=== PATIENT | female | born 1980 | race Caucasian/White ===

== ENCOUNTER → 2020-06-30 | Outpatient (REF) | payer BC ==
[2020-06-30 14:58] LABS: BASO # 0.1 10^3/uL (0.0-0.2); EOS # 0.4 10^3/uL (0.0-0.5); EOS % 3.3 % (0.0-3.0); HEMATOCRIT 42.4 % (36.0-47.0); HEMOGLOBIN 13.6 g/dl (12.0-15.5); LYMPH # 2.4 10^3/uL (1.5-5.0); LYMPH % 20.5 % (24.0-44.0); MEAN CORPUSCULAR HEMOGLOBIN 29.4 pg (27.0-33.0); MEAN CORPUSCULAR HGB CONC 32.1 g/dl (32.0-36.5); MEAN CORPUSCULAR VOLUME 91.6 fl (80.0-96.0); MONO # 0.7 10^3/uL (0.0-0.8); NEUTROPHILS # 7.9 10^3/uL (1.5-8.5); NEUTROPHILS % 68.8 % (36.0-66.0); PLATELET COUNT, AUTOMATED 485 10^3/uL (150-450); RED BLOOD COUNT 4.63 10^6/uL (4.00-5.40); WHITE BLOOD COUNT 11.5 10^3/uL (4.0-10.0)
[2020-06-30 15:32] LABS: ALBUMIN 3.2 GM/DL (3.2-5.2); ALT/SGPT 13 U/L (12-78); BILIRUBIN,TOTAL 0.4 MG/DL (0.2-1.0); BLOOD UREA NITROGEN 11 MG/DL (7-18); CALCIUM LEVEL 9.6 MG/DL (8.5-10.1); CARBON DIOXIDE LEVEL 30 MEQ/L (21-32); CHLORIDE LEVEL 104 MEQ/L (98-107); CHOLESTEROL LEVEL 135 MG/DL (<200); CHOLESTEROL RISK RATIO 3.214 (<5); CREATININE FOR GFR 0.59 MG/DL (0.55-1.30); GLOMERULAR FILTRATION RATE > 60.0 (>58); GLUCOSE, FASTING 87 MG/DL (70-100); HDL CHOLESTEROL 42 MG/DL (>40); LDL CHOLESTEROL 68 MG/DL (<100); NON-HDL-C 93 MG/DL; POTASSIUM SERUM 4.6 MEQ/L (3.5-5.1); SODIUM LEVEL 137 MEQ/L (136-145); TOTAL PROTEIN 6.6 GM/DL (6.4-8.2); TRIGLYCERIDES LEVEL 125 MG/DL (<150)
== END ==
LOC: M SFHCPLAZ 09:54
PROVIDERS: ATTEND Physician Assistant Medical
DX: K21.9 Gastro-esophageal reflux disease without esophagitis (principal); Z13.220 Encounter for screening for lipoid disorders

== ENCOUNTER → 2020-07-28 | Outpatient (REF) | payer BC ==
[2020-07-28 13:55] LABS: BASO # 0.1 10^3/uL (0.0-0.2); EOS # 0.3 10^3/uL (0.0-0.5); EOS % 3.1 % (0.0-3.0); HEMATOCRIT 41.1 % (36.0-47.0); HEMOGLOBIN 13.3 g/dl (12.0-15.5); LYMPH # 2.4 10^3/uL (1.5-5.0); LYMPH % 22.3 % (24.0-44.0); MEAN CORPUSCULAR HEMOGLOBIN 29.6 pg (27.0-33.0); MEAN CORPUSCULAR HGB CONC 32.4 g/dl (32.0-36.5); MEAN CORPUSCULAR VOLUME 91.3 fl (80.0-96.0); MONO # 0.7 10^3/uL (0.0-0.8); MONO % 6.2 % (0.0-5.0); NEUTROPHILS # 7.2 10^3/uL (1.5-8.5); NEUTROPHILS % 67.2 % (36.0-66.0); PLATELET COUNT, AUTOMATED 458 10^3/uL (150-450); WHITE BLOOD COUNT 10.8 10^3/uL (4.0-10.0)
[2020-07-28 15:14] LABS: ALBUMIN 3.3 GM/DL (3.2-5.2); ALT/SGPT 11 U/L (12-78); BILIRUBIN,TOTAL 0.6 MG/DL (0.2-1.0); BLOOD UREA NITROGEN 12 MG/DL (7-18); CALCIUM LEVEL 9.3 MG/DL (8.5-10.1); CARBON DIOXIDE LEVEL 28 MEQ/L (21-32); CHLORIDE LEVEL 103 MEQ/L (98-107); CREATININE FOR GFR 0.63 MG/DL (0.55-1.30); GLOMERULAR FILTRATION RATE > 60.0 (>58); GLUCOSE, FASTING 86 MG/DL (70-100); LIPASE 66 U/L (73-393); POTASSIUM SERUM 4.9 MEQ/L (3.5-5.1); SODIUM LEVEL 136 MEQ/L (136-145); TOTAL PROTEIN 6.7 GM/DL (6.4-8.2)
== END ==
LOC: M SFHCPLAZ 11:13
PROVIDERS: ATTEND Physician Assistant Medical
DX: R14.0 Abdominal distension (gaseous) (principal); K21.9 Gastro-esophageal reflux disease without esophagitis

== ENCOUNTER 2020-08-18 15:46 | Emergency (ER) | payer BC ==
[~2020-08-18] VITALS: Ht 160 cm; Wt 57.3 kg
--- OUTSIDE RECORDS SUMMARY | 2020-08-18 15:52 | CCD ---
Author Author [facility] Organization [facility] Address Unknown Phone Unavailable Care Team Providers Care Boat Hoist Operator Name Role Phone CorneliaMelanie vyasan Unavailable PROBLEMS Type Condition ICD9-CM Code HMF01-AT Code Onset Dates Condition S tatus SNOMED Code Notes Problem Cervical cancer screening Z12.4 Active 829264 001 Problem Tobacco use Z72.0 Active 112533759 Problem Gastroesophageal reflux dise ase, unspecified whether esophagitis present K21.9 Active 565021480 Problem Encounter for screening for malignant neoplasm of breast, unspecified screening modality Z12.39 Active 750878273 Problem Lipid screening Z13.220 Active 333288580 Problem Colon cancer screening Z12.11 Active 773315802 ALLERGIES Allergen (clinical drug ingredient) Drug/Non Drug Allergy do cumented on EMR Reaction Allergy Type Onset Date Status codeine Codeine Sulfate([facility] Code:[address]-27) Nausea/Vomiting Dr ug Allergy Active ENCOUNTERS from 1979 to 2020-08-08 Encounter Location Date Provider Diagnosis [address] [address] Jul, Oly Bautista Bloating R14.0 ; Gastroesophageal reflux disease, unspecified whether esophagitis present K21.9 ; Lipid screening Z13.220 ; Tobacco use Z72.0 and Colon cancer screening Z12.11 IMMUNIZATIONS No Information SOCIAL HISTORY Tobacco Use: Social History Observation Description Date Details (start date - stop date) Current Smoker Sex Assigned At : Social History Observation Description Sex Assigned At Unknown Education: Question Answer Notes Level of Education: Finished College Audit Question Answer Notes Total Score: 7 Interpretation: Alcohol Education Language: Question Answer Notes Languages spoken: Polish Drug and Alcohol Question Answer Notes Total Score: 0 Interpretation: No problems reported Tobacco Use: Question Answer Notes Are you a: current smoker Patient counseled on the dangers of tobacco use and urged to quit: 06/30/2020 How many cigarettes a day do you smoke? 11- Are you interested in quitting? Not ready to quit REASON FOR REFERRAL No Information VITAL SIGNS Weight 128 lbs Jul, Height 63 in Jul, BMI 22.67 kg/m2 Jul, Heart Rate 121 /min Jul, Respiratory Rate 18 /min Jul, Temperature 98.1 degrees Fahrenheit Jul, Oximetry 100 Jul, Blood pressure systolic 120 mm Hg Jul, Blood pressure diastolic 68 mm Hg Jul, MEDICATIONS Medication SIG (Take, Route, Frequency, Duration) Notes Start Da te End Date Status MiraLax 17 GM 1 packet mixed with 8 ounces of fluid Orally Once a day for 30 day(s) Jul, Active Phazyme 180 MG 1 capsule after meals and at bedtime as needed Orally Daily for 30 Days Jul, Active Omeprazole 20 MG 1 capsule 30 minutes before morning meal Orally bid before meals for 30 day(s) Active PROCEDURES No Information RESULTS Component Value Reference Range CBC with Differential Reviewed date:07/28/2020 16:52:17 Interpretation: Performing Lab:[facility], [facility] [address] [address] , ,[place] [address] WHITE BLOOD COUNT 10.8 4.0-10.0 RED BLOOD COUNT 4.50 4.00-5.40 HEMOGLOBIN 13.3 12.0-15.5 HEMATOCRIT 41.1 36.0-47.0 MEAN CORPUSCULAR VOLUME 91.3 80.0-96.0 MEAN CORPUSCULAR HEMOGLOBIN 29.6 27.0-33.0 MEAN CORPUSCULAR HGB CONC 32.4 32.0-36.5 RED CELL DISTRIBUTION WIDTH 13.6 11.5-14.5 PLATELET COUNT, AUTOMATED 458 150-450 NEUTROPHILS % 67.2 36.0-66.0 LYMPH % 22.3 24.0-44.0 MONO % 6.2 0.0-5.0 EOS % 3.1 0.0-3.0 BASO % 1.0 0.0-1.0 NEUTROPHILS # 7.2 1.5-8.5 LYMPH # 2.4 1.5-5.0 MONO # 0.7 0.0-0.8 EOS # 0.3 0.0-0.5 BASO # 0.1 0.0-0.2 Comprehensive Metabolic Profile (CMP) Reviewed date:07/28/2020 16:51:54 Interpretation: Performing Lab:[facility] [address] [address] [address] , ,[place] [address] GLUCOSE, FASTING 86 70-100 BLOOD UREA NITROGEN 12 7-18 CREATININE FOR GFR 0.63 0.55-1.30 GLOMERULAR FILTRATION RATE > 60.0 >58 SODIUM LEVEL 136 136-145 POTASSIUM SERUM 4.9 3.5-5.1 CHLORIDE LEVEL 103 98-107 CARBON DIOXIDE LEVEL 28 21-32 CALCIUM LEVEL 9.3 8.5-10.1 AST/SGOT 7 7-37 ALT/SGPT 11 12-78 ALKALINE PHOSPHATASE 79 45-117 BILIRUBIN,TOTAL 0.6 0.2-1.0 TOTAL PROTEIN 6.7 6.4-8.2 ALBUMIN 3.3 3.2-5.2 ALBUMIN/GLOBULIN RATIO 1.0 1.2-2.2 LIPASE Reviewed date:07/28/2020 16:52:28 Interpretation: Performing Lab:[facility] [id number] , ,[facility] LIPASE 66 73-393 REASON FOR VISIT 4 Weeks c SS MEDICAL (GENERAL) HISTORY Type Description Date Surgical History rectal fissure repair-[facility] 201 0 Surgical History tonsillectomy Hospitalization History as above Goals Section No Information Health Concerns No Information MEDICAL EQUIPMENT No Information MENTAL STATUS No Information FUNCTIONAL STATUS No Information ASSESSMENTS Encounter Date Diagnosis Assessment Notes Treatment Notes Treatm ent Clinical Notes Jul, Bloating (ICD-10 - R14.0) Trial of above 07/2020 lipase 66 Jul, Gastroesophageal reflux dise ase, unspecified whether esophagitis present (ICD-10 - K21.9) Controlled 07/2020 10.8, 13.3&41.1, 458k 06/2020 wbc 11.5, H&H 13.6&42.4, plat.s 485k 11 Jul, 2020 Lipid screening (ICD-10 - Z13.220) 06/2020 LDL 68/HDL 42/TG 125 07/2020 136,4.9, 12/0.63, 86, calc. 9.3, 11,79 06/2020 Na 137, k4.6, bun/cr 11/0.59,gluc 87, calc. 9.6, ast 13,alt 11 Jul, 2020 Tobacco use (ICD-10 - Z72.0) Started smoking at 15, has used 1ppd x25Y, offered aids to quit declines for now Jul, Colon cancer screening (ICD-10 - Z12.11) No family colon ca or polyps , will monitor bloating H/o rectal fissure, h/o surg. resection, no appetite or wt. loss PLAN OF TREATMENT Medication Medication Name Sig Start Date Stop Date MiraLax 17 GM 1 packet mixed with 8 ounces of fluid Orally Once a day for 30 day(s) Jul, Omeprazole 20 MG 1 capsule 30 minutes before morning meal Orally bid before meals for 30 day(s) Phazyme 180 MG 1 capsule after meals and at bedtime as needed Orally Daily for 30 Days Jul, Treatment Notes Assessment Notes Clinical Notes Bloating Trial of above07/2020 lipase 66 Gastroesophageal reflux disease, unspecified whether esophag itis present Controlled07/2020 10.8, 13.3&41.1, 458k108/2019 wbc 11.5, H&H 13.6&42.4, plat.s 485k Lipid screening 06/2020 LDL 68/HDL 4 2/TG 12507/2020 136,4.9, 12/0.63, 86, calc. 9.3, 11,7906/2020 Na 137, k4.6, bun/cr 11/0.59,gluc 87, calc. 9.6, ast 13,alt Tobacco use Started smoking at [age], has used 1ppd x25Y, offered aids to quit declines for now Colon cancer screening No family colon c a or polyps , will monitor bloatingH/o rectal fissure, h/o surg. resection, no appetite or wt. loss Next Appt Details 2-3 Months c SS Reason: Provider Name:Oly Bautista, 09-22 10:30:00 AM, [address] [place], [address], Insurance Providers Payer Name Payer Address Payer Phone Insured Name Patient Relati onship to Insured Coverage Start Date Coverage End Date [facility] [address] [facility] [address] [address] [facility] [address] [id number]
--- OUTSIDE RECORDS SUMMARY | 2020-08-18 15:52 | CCD ---
Author Author [facility] Organization [facility] Address Unknown Phone Unavailable Care Team Providers Care Caramel Coloring Operator Name Role Phone Michele Oly Unavailable PROBLEMS Type Condition ICD9-CM Code YDW06-FM Code Onset Dates Condition S tatus SNOMED Code Notes Problem Cervical cancer screening Z12.4 Active 311883 001 Problem Tobacco use Z72.0 Active 100267556 Problem Gastroesophageal reflux dise ase, unspecified whether esophagitis present K21.9 Active 571514783 Problem Encounter for screening for malignant neoplasm of breast, unspecified screening modality Z12.39 Active 007174088 Problem Lipid screening Z13.220 Active 757489619 Problem Colon cancer screening Z12.11 Active 565566733 ALLERGIES Allergen (clinical drug ingredient) Drug/Non Drug Allergy do cumented on EMR Reaction Allergy Type Onset Date Status codeine Codeine Sulfate([facility] Code:[address]-17) Nausea/Vomiting Dr ug Allergy Active ENCOUNTERS from 1979 to 2020-07-04 Encounter Location Date Provider Diagnosis [address] [address] 14 Jun, 2020 Oly Bautista Physical exam Z00.00 ; Colon cancer scre ening Z12.11 ; Lipid screening Z13.220 ; Encounter for screening for malignant neoplasm of breast, unspecified screening modality Z12.39 ; Cervical cancer screening Z12.4 ; Gastroesophageal reflux disease, unspecified whether esophagitis present K21.9 and Tobacco use Z72.0 IMMUNIZATIONS No Information SOCIAL HISTORY Tobacco Use: Social History Observation Description Date Details (start date - stop date) Current Smoker Sex Assigned At : Social History Observation Description Sex Assigned At Unknown Audit Question Answer Notes Total Score: 7 Interpretation: Alcohol Education Drug and Alcohol Question Answer Notes Total Score: 0 Interpretation: No problems reported Tobacco Use: Question Answer Notes Are you a: current smoker Patient counseled on the dangers of tobacco use and urged to quit: 06/30/2020 How many cigarettes a day do you smoke? 11-20 Are you interested in quitting? Not ready to quit REASON FOR REFERRAL No Information VITAL SIGNS Weight 127.0 lbs Jun, Height 63 in Jun, BMI 22.49 kg/m2 Jun, Heart Rate 126 /min Jun, Respiratory Rate 18 /min Jun, Temperature 98.0 degrees Fahrenheit Jun, Oximetry 98% Jun, Blood pressure systolic 110 mm Hg Jun, Blood pressure diastolic 70 mm Hg Jun, MEDICATIONS Medication SIG (Take, Route, Frequency, Duration) Notes Start Da te End Date Status Omeprazole 20 MG 1 capsule 30 minutes before morning meal Orally bid before meals for 30 day(s) Jun, Active PROCEDURES No Information RESULTS Component Value Reference Range CBC with Differential Reviewed date:06/30/2020 16:44:34 Interpretation: Performing Lab:[facility], [facility] [address] [address] , ,[place] [address] WHITE BLOOD COUNT 11.5 4.0-10.0 RED BLOOD COUNT 4.63 4.00-5.40 HEMOGLOBIN 13.6 12.0-15.5 HEMATOCRIT 42.4 36.0-47.0 MEAN CORPUSCULAR VOLUME 91.6 80.0-96.0 MEAN CORPUSCULAR HEMOGLOBIN 29.4 27.0-33.0 MEAN CORPUSCULAR HGB CONC 32.1 32.0-36.5 RED CELL DISTRIBUTION WIDTH 13.0 11.5-14.5 PLATELET COUNT, AUTOMATED 485 150-450 NEUTROPHILS % 68.8 36.0-66.0 LYMPH % 20.5 24.0-44.0 MONO % 6.0 0.0-5.0 EOS % 3.3 0.0-3.0 BASO % 1.0 0.0-1.0 NEUTROPHILS # 7.9 1.5-8.5 LYMPH # 2.4 1.5-5.0 MONO # 0.7 0.0-0.8 EOS # 0.4 0.0-0.5 BASO # 0.1 0.0-0.2 Comprehensive Metabolic Profile (CMP) Reviewed date:06/30/2020 16:43:11 Interpretation: Performing Lab:[facility] [address] [facility] [address] , ,[place] [address] GLUCOSE, FASTING 87 70-100 BLOOD UREA NITROGEN 11 7-18 CREATININE FOR GFR 0.59 0.55-1.30 GLOMERULAR FILTRATION RATE > 60.0 >58 SODIUM LEVEL 137 136-145 POTASSIUM SERUM 4.6 3.5-5.1 CHLORIDE LEVEL 104 98-107 CARBON DIOXIDE LEVEL 30 21-32 CALCIUM LEVEL 9.6 8.5-10.1 AST/SGOT 4 7-37 ALT/SGPT 13 12-78 ALKALINE PHOSPHATASE 89 45-117 BILIRUBIN,TOTAL 0.4 0.2-1.0 TOTAL PROTEIN 6.6 6.4-8.2 ALBUMIN 3.2 3.2-5.2 ALBUMIN/GLOBULIN RATIO 0.9 1.2-2.2 LIPID PANEL (CARDIAC RISK) Reviewed date:06/30/2020 16:42:52 Interpretation: Performing Lab:[facility] [address] [facility] [id number] , ,[place] [address] TRIGLYCERIDES LEVEL 125 <150 CHOLESTEROL LEVEL 135 <200 HDL CHOLESTEROL 42 >40 LDL CHOLESTEROL 68 <100 NON-HDL-C 93 CHOLESTEROL RISK RATIO 3.214 <5 REASON FOR VISIT GUITAR TECHNICIAN-To Establish Care MEDICAL (GENERAL) HISTORY Type Description Date Surgical History rectal fissure repair-[facility] 201 0 Surgical History tonsillectomy Hospitalization History as above Goals Section No Information Health Concerns No Information MEDICAL EQUIPMENT No Information MENTAL STATUS No Information FUNCTIONAL STATUS No Information ASSESSMENTS Encounter Date Diagnosis Assessment Notes Treatment Notes Treatm ent Clinical Notes Jun, Physical exam (ICD-10 - Z00.00) Jun, Colon cancer screening (ICD-10 - Z12.11) No family colon ca or polyps H/o rectal fissure, h/o surg. resection, no appetite or wt. loss Jun, Lipid screening (ICD-10 - Z13.220) Jun, Encounter for screening for malignant neoplasm of breast, unspecified screening modality (ICD-10 - Z12.39) Jun, Cervical cancer screening (ICD-10 - Z12.4) Given no. to schedule Jun, Gastroesophageal reflux dise ase, unspecified whether esophagitis present (ICD-10 - K21.9) Jun, Tobacco use (ICD-10 - Z72.0) Started smoking at 15, has used 1ppd x25Y, offered aids to quit declines for now PLAN OF TREATMENT Medication Medication Name Sig Start Date Stop Date Omeprazole 20 MG 1 capsule 30 minutes before morning meal Orally bid before meals for 30 day(s) Jun, Treatment Notes Assessment Notes Clinical Notes Colon cancer screening No family colon c a or polypsH/o rectal fissure, h/o surg. resection, no appetite or wt. loss Cervical cancer screening Given no. to s chedule Tobacco use Started smoking at [age], has used 1ppd x25Y, offered aids to quit declines for now Treatment Notes Test Name Order Date Digital Mammo Diagnostic Bilat (Ultrasound if indicate d) 2020-07-04 Next Appt Details 4 Weeks c SS Reason: Provider Name:Oly Bautista, -11 10:30:00 AM, [address] [place], [address], Insurance Providers Payer Name Payer Address Payer Phone Insured Name Patient Relati onship to Insured Coverage Start Date Coverage End Date [facility] [id number] [facility] [address] [address] [facility] [address] [id number]
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
[2020-08-18] MEDS ORDERED: OMEP-218 (16:00)
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
[2020-08-18 19:13] LABS: BASO # 0.1 10^3/uL (0.0-0.2); BASO % 0.8 % (0.0-1.0); EOS # 0.8 10^3/uL (0.0-0.5); EOS % 6.1 % (0.0-3.0); HEMATOCRIT 39.8 % (36.0-47.0); HEMOGLOBIN 12.9 g/dl (12.0-15.5); LYMPH % 22.1 % (24.0-44.0); MEAN CORPUSCULAR HEMOGLOBIN 28.7 pg (27.0-33.0); MEAN CORPUSCULAR HGB CONC 32.4 g/dl (32.0-36.5); MEAN CORPUSCULAR VOLUME 88.4 fl (80.0-96.0); MONO # 0.8 10^3/uL (0.0-0.8); MONO % 5.6 % (0.0-5.0); NEUTROPHILS # 8.9 10^3/uL (1.5-8.5); PLATELET COUNT, AUTOMATED 407 10^3/uL (150-450); WHITE BLOOD COUNT 13.7 10^3/uL (4.0-10.0)
[2020-08-18 19:39] LABS: ALBUMIN 3.4 GM/DL (3.2-5.2); ALT/SGPT 15 U/L (12-78); BILIRUBIN,DIRECT 0.2 MG/DL (0.0-0.2); BILIRUBIN,TOTAL 0.5 MG/DL (0.2-1.0); BLOOD UREA NITROGEN 9 MG/DL (7-18); CALCIUM LEVEL 9.3 MG/DL (8.5-10.1); CARBON DIOXIDE LEVEL 28 MEQ/L (21-32); CHLORIDE LEVEL 102 MEQ/L (98-107); CREATININE FOR GFR 0.63 MG/DL (0.55-1.30); GLOMERULAR FILTRATION RATE > 60.0 (>58); GLUCOSE, FASTING 85 MG/DL (70-100); LIPASE 42 U/L (73-393); POTASSIUM SERUM 4.3 MEQ/L (3.5-5.1); SODIUM LEVEL 140 MEQ/L (136-145); TOTAL PROTEIN 6.5 GM/DL (6.4-8.2)
[2020-08-18 19:40] LABS: HCG, SERUM QUALITATIVE NEGATIVE (NEGATIVE)
[2020-08-18] MEDS ORDERED: NS 1,000 ML IV ONE (20:15)
[2020-08-18] MEDS ORDERED: ISOVUE-370 76% 100ML VIAL As Ordered ONE (20:38)
--- NOTE | 2020-08-18 21:21 | REPVR ---
PROCEDURE INFORMATION: Exam: CT Abdomen And Pelvis With Contrast Exam date and time: 08/18/2020 8:36 PM Age: 40 years old Clinical indication: Bloating; Additional info: Abd bloating x 2 mo, rlq abd pain TECHNIQUE: Imaging protocol: Computed tomography of the abdomen and pelvis with contrast. Axial, coronal and sagittal reformatted images were created and reviewed. Radiation optimization: All CT scans at this facility use at least one of these dose optimization techniques: automated exposure control; mA and/or kV adjustment per patient size (includes targeted exams where dose is matched to clinical indication); or iterative reconstruction. Contrast material: ISOVUE 370; Contrast volume: 100 ml; Contrast route: INTRAVENOUS (IV); COMPARISON: No relevant prior studies available. FINDINGS: Liver: Unremarkable. Gallbladder and bile ducts: No radiodense gallstones. No biliary ductal dilatation. Pancreas: Unremarkable. Spleen: Mild scalloping of the splenic capsule. Adrenal glands: Normal. No mass. Kidneys and ureters: No mass. No radiodense calculi. No hydronephrosis. Stomach and bowel: No bowel wall thickening. No obstruction. No pneumatosis. Appendix: Normal. Intraperitoneal space: Large volume ascites. No organized collection. No free air. Vasculature: Mild atherosclerotic disease. No aneurysm or dissection. Lymph nodes: No pathologically enlarged lymph nodes. Urinary bladder: Unremarkable as visualized. Reproductive: Ill-defined, complex left adnexal mass (at least 8.6 x 5.3 cm) with associated lobular soft tissue (at least 13.1 x 10 x 10.7 cm) extending into the right adnexum and right lower quadrant mesentery/omentum. Bones/joints: No acute osseous abnormality. Soft tissues: Unremarkable. IMPRESSION: 1. 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 2. Additional findings, as above. THIS REPORT CONTAINS FINDINGS THAT MAY BE CRITICAL TO PATIENT CARE. The findings were verbally communicated via telephone conference with VERONIKA TIRADO at 9:20 PM EST on 08/18/2020. The findings were acknowledged and understood. Electronically signed by: Davi Calhoun On 08/18/2020 21:21:29 PM
[2020-08-18 22:01] VITALS: BP 132/83
--- NOTE | 2020-08-19 13:21 | ED PDOC ---
Post-Departure Follow-Up dr astorga and sandy ulloa faxed formal report of ct abd/p fo rfu Brian Swann MD Aug 19, 2020 13:21
[2020-08-19 14:27] LABS: CA 125 1359.8 U/ML (<30.2)
== END 2020-08-18 22:08 | disposition home or self-care (01) ==
LOC: M ED 15:46
DX: C56.2 Malignant neoplasm of left ovary (principal); R18.8 Other ascites; F17.210 Nicotine dependence, cigarettes, uncomplicated
CPT/HCPCS: 74177; 80048; 80076; 81001; 83690; 84703; 85025; 86304; 96360; 99284; Q9967

== ENCOUNTER → 2020-08-18 | Outpatient (REF) | payer BC ==
[~2020-08-18] MED LIST: OMEP-218
[2020-08-18 16:46] LABS: BASO # 0.1 10^3/uL (0.0-0.2); BASO % 0.8 % (0.0-1.0); EOS # 0.6 10^3/uL (0.0-0.5); EOS % 4.7 % (0.0-3.0); HEMATOCRIT 39.2 % (36.0-47.0); HEMOGLOBIN 12.6 g/dl (12.0-15.5); LYMPH # 2.7 10^3/uL (1.5-5.0); LYMPH % 19.5 % (24.0-44.0); MEAN CORPUSCULAR HEMOGLOBIN 28.6 pg (27.0-33.0); MEAN CORPUSCULAR HGB CONC 32.1 g/dl (32.0-36.5); MEAN CORPUSCULAR VOLUME 88.9 fl (80.0-96.0); MONO # 0.7 10^3/uL (0.0-0.8); MONO % 5.4 % (0.0-5.0); NEUTROPHILS # 9.5 10^3/uL (1.5-8.5); NEUTROPHILS % 69.2 % (36.0-66.0); PLATELET COUNT, AUTOMATED 419 10^3/uL (150-450); RED BLOOD COUNT 4.41 10^6/uL (4.00-5.40); WHITE BLOOD COUNT 13.7 10^3/uL (4.0-10.0)
[2020-08-18 16:53] LABS: ALBUMIN 3.3 GM/DL (3.2-5.2); ALT/SGPT 14 U/L (12-78); BILIRUBIN,TOTAL 0.4 MG/DL (0.2-1.0); BLOOD UREA NITROGEN 9 MG/DL (7-18); CARBON DIOXIDE LEVEL 29 MEQ/L (21-32); CHLORIDE LEVEL 100 MEQ/L (98-107); CREATININE FOR GFR 0.59 MG/DL (0.55-1.30); GLOMERULAR FILTRATION RATE > 60.0 (>58); GLUCOSE, FASTING 78 MG/DL (70-100); POTASSIUM SERUM 4.4 MEQ/L (3.5-5.1); SODIUM LEVEL 136 MEQ/L (136-145); TOTAL PROTEIN 6.5 GM/DL (6.4-8.2)
== END ==
LOC: M SFHCPLAZ 14:13
PROVIDERS: ATTEND Physician Assistant Medical
DX: K21.9 Gastro-esophageal reflux disease without esophagitis (principal); R14.0 Abdominal distension (gaseous)

== ENCOUNTER → 2020-08-20 | Outpatient (CLI) | payer BC ==
--- NOTE | 2020-08-20 13:51 | REP ---
INDICATION: OVARION CA ? METS. COMPARISON: None. TECHNIQUE: Helical scanning is acquired. 3 mm axial images are generated. Coronal and sagittal MPR and coronal MIP images are generated. FINDINGS: Digital preliminary broomcorn scraper radiograph is unremarkable. The lung nguyen are free of infiltrate. No pulmonary nodule or mass lesion is observed. There is no evidence of pleural or pericardial effusion. There is no evidence of hilar lymphadenopathy. There is a solitary perivascular lymph node in the superior mediastinum with dimensions of 9 by 15 by 11 mm.. No supraclavicular mass or adenopathy is seen. No axillary adenopathy is noted. A moderate to large amount of upper abdominal ascites is again noted. No bony destructive lesion is seen. Incidental note is made of a air-filled tracheal diverticulum at the thoracic inlet to the right of midline. This is a normal variant. IMPRESSION: Moderate upper abdominal ascites again noted. There is a solitary perivascular lymph node in the superior mediastinum, borderline in size. No other evidence to suggest intrathoracic metastatic disease.. <Electronically signed by Krishna Rothman > 08/20/20 [id number]
--- NOTE | 2020-08-20 14:13 | REP ---
INDICATION: OVARION CA ? METS. COMPARISON: None. TECHNIQUE: Helical scanning is acquired. 5 mm axial images were reformatted. Coronal MPR images were generated. FINDINGS: Bone window settings demonstrate an intact bony calvarium. There is no evidence of skull fracture or incidental bony calvarial lesion. The visualized paranasal sinuses appear clear. No intraorbital abnormality is seen. On soft tissue window setting images; the lateral, third, and fourth ventricles are normal in size and position. Hernandez-white differentiation pattern is normal above and below the tentorium. There are is no evidence of intracranial hemorrhage. No mass, edema, infarction, or midline shift is seen. No extra-axial fluid collection is appreciated. IMPRESSION: Negative noncontrast head CT. <Electronically signed by Krishna Rothman > 08/20/20 [id number]
== END ==
LOC: M RAD 13:21
PROVIDERS: ATTEND Physician Assistant Medical
DX: N94.89 Other specified conditions associated with female genital organs and menstrual cycle (principal); C56.2 Malignant neoplasm of left ovary; C56.1 Malignant neoplasm of right ovary; R18.0 Malignant ascites

== ENCOUNTER → 2020-08-22 | Outpatient (REF) | payer BC ==
[2020-08-22 11:46] LABS: INR 0.95; PROTHROMBIN TIME 12.9 SECONDS (12.5-14.3)
[2020-08-22 11:47] LABS: PARTIAL THROMBOPLASTIN TIME 29.1 SECONDS (24.2-38.5)
== END ==
LOC: M SFHCPLAZ 09:17
PROVIDERS: ATTEND Physician Assistant Medical
DX: C56.2 Malignant neoplasm of left ovary (principal)

== ENCOUNTER → 2021-06-25 | Outpatient (CLI) | payer BC ==
--- NOTE | 2021-06-26 08:11 | REP ---
INDICATION: Screening. Dense breast tissue. COMPARISON: None TECHNIQUE: Multiple ultrasound images of both breasts were obtained. FINDINGS: Right breast: 1 o'clock, 2 cm from the nipple, 14 x 11 x 6 mm, oval, parallel, circumscribed, hypoechoic mass with no posterior features. Shear wave elastography, 27.1 kPa. Left breast: 3 o'clock, 2 cm the nipple, 4 x 4 x 3 mm, oval, parallel, circumscribed, hypoechoic mass with no posterior features. Shear wave elastography, 23.5 kPa. 12 o'clock, 1 cm from the nipple, 8 x 6 x 3 mm, clustered microcysts. Shear wave elastography, 12.4 kPa. IMPRESSION: Probably benign masses in both breasts. BI-RADS: Category 3: Probably benign. RECOMMENDATION: Six-month follow-up ultrasound evaluation of both breasts. <Electronically signed by aVlente Infante > 06/26/21 [id number]
== END ==
LOC: M WHC 13:49
PROVIDERS: ATTEND Physician Assistant Medical
DX: Z12.31 Encounter for screening mammogram for malignant neoplasm of breast (principal)

== ENCOUNTER → 2022-02-10 | Outpatient (CLI) | payer BC ==
[~2022-02-10] MED LIST changes: +OMEP-173; -OMEP-218
[2022-02-10 13:38] LABS: BASO # 0.1 10^3/uL (0.0-0.2); BASO % 0.8 % (0.0-1.0); EOS # 0.4 10^3/uL (0.0-0.5); EOS % 3.2 % (0.0-3.0); HEMATOCRIT 40.4 % (36.0-47.0); HEMOGLOBIN 13.6 g/dl (12.0-15.5); LYMPH # 3.9 10^3/uL (1.5-5.0); LYMPH % 32.8 % (24.0-44.0); MEAN CORPUSCULAR HEMOGLOBIN 31.1 pg (27.0-33.0); MEAN CORPUSCULAR HGB CONC 33.7 g/dl (32.0-36.5); MEAN CORPUSCULAR VOLUME 92.2 fl (80.0-96.0); MONO # 0.6 10^3/uL (0.0-0.8); MONO % 4.9 % (2.0-8.0); NEUTROPHILS # 6.8 10^3/uL (1.5-8.5); PLATELET COUNT, AUTOMATED 330 10^3/uL (150-450); RED BLOOD COUNT 4.38 10^6/uL (4.00-5.40); WHITE BLOOD COUNT 11.8 10^3/uL (4.0-10.0)
[2022-02-10 14:01] LABS: ALBUMIN 4.1 GM/DL (3.2-5.2); ALT/SGPT 23 U/L (12-78); BILIRUBIN,TOTAL 0.5 MG/DL (0.2-1.0); BLOOD UREA NITROGEN 8 MG/DL (7-18); CALCIUM LEVEL 9.5 MG/DL (8.5-10.1); CARBON DIOXIDE LEVEL 31 MEQ/L (21-32); CHLORIDE LEVEL 107 MEQ/L (98-107); CHOLESTEROL LEVEL 172 MG/DL (<200); CHOLESTEROL RISK RATIO 2.965 (<5); CREATININE FOR GFR 0.65 MG/DL (0.55-1.30); GLOMERULAR FILTRATION RATE > 60.0 (>58); GLUCOSE, FASTING 92 MG/DL (70-100); HDL CHOLESTEROL 58 MG/DL (>40); LDL CHOLESTEROL 97 MG/DL (<100); NON-HDL-C 114 MG/DL; POTASSIUM SERUM 4.7 MEQ/L (3.5-5.1); SODIUM LEVEL 140 MEQ/L (136-145); TOTAL PROTEIN 7.3 GM/DL (6.4-8.2); TRIGLYCERIDES LEVEL 85 MG/DL (<150)
== END ==
LOC: M PLALAB 10:48
PROVIDERS: ATTEND Physician Assistant Medical
DX: Z13.220 Encounter for screening for lipoid disorders (principal); K21.9 Gastro-esophageal reflux disease without esophagitis

== ENCOUNTER → 2022-05-27 | Outpatient (CLI) | payer BC | LOC: M WHC 08:35 | PROVIDERS: ATTEND Physician Assistant Medical | DX: Z12.31 Encounter for screening mammogram for malignant neoplasm of breast (principal); M81.0 Age-related osteoporosis without current pathological fracture ==

== ENCOUNTER → 2022-06-01 | Outpatient (CLI) | payer BC | LOC: M WHC 12:42 | PROVIDERS: ATTEND Physician Assistant Medical | DX: Z12.39 Encounter for other screening for malignant neoplasm of breast (principal); R92.2 Inconclusive mammogram ==

== ENCOUNTER → 2022-12-07 | Outpatient (CLI) | payer BC ==
[~2022-12-07] VITALS: Ht 160 cm; Wt 56.8 kg
[~2022-12-07] MED LIST changes: +LETR2.5T2 PO; -OMEP-173; +OMEP-173 PO
[2022-12-07 14:33] VITALS: BP 119/81
== END ==
LOC: M PAL 14:19
PROVIDERS: ATTEND Nurse Practitioner Adult Health
DX: C56.9 Malignant neoplasm of unspecified ovary (principal); Z51.5 Encounter for palliative care; F17.210 Nicotine dependence, cigarettes, uncomplicated; M25.59 Pain in other specified joint; G47.00 Insomnia, unspecified; Z79.811 Long term (current) use of aromatase inhibitors; Z79.899 Other long term (current) drug therapy; Z88.5 Allergy status to narcotic agent

== ENCOUNTER → 2023-02-14 | Outpatient (CLI) | payer BC | LOC: M RAD 11:02 | PROVIDERS: ATTEND Physician Assistant Medical | DX: R22.42 Localized swelling, mass and lump, left lower limb (principal) ==

== ENCOUNTER → 2023-04-06 | Outpatient (REF) | payer BC | LOC: M LAB REF 08:57 | PROVIDERS: ATTEND Surgery | DX: D17.24 Benign lipomatous neoplasm of skin and subcutaneous tissue of left leg (principal) ==

== ENCOUNTER → 2023-04-20 | Outpatient (REF) ==
[2023-04-20 12:42] LABS: HEPATITIS B CORE ANTIBODY IGM NEGATIVE (NEGATIVE); HEPATITIS C VIRUS ABY INDEX 0.04 INDEX (<0.8)
[2023-04-20 12:43] LABS: HIV SCREEN CENTAUR EXPOSED NEGATIVE (NEGATIVE)
== END ==
LOC: M LAB 10:03
PROVIDERS: ATTEND Surgery
DX: Z77.21 Contact with and (suspected) exposure to potentially hazardous body fluids (principal); W46.1XXA Contact with contaminated hypodermic needle, initial encounter

== ENCOUNTER → 2023-11-22 | Outpatient (CLI) | payer BC | LOC: M PAL 13:52 | PROVIDERS: ATTEND Nurse Practitioner Adult Health | DX: G89.29 Other chronic pain (principal); M25.59 Pain in other specified joint; C56.9 Malignant neoplasm of unspecified ovary; Z51.5 Encounter for palliative care; F17.210 Nicotine dependence, cigarettes, uncomplicated; G47.00 Insomnia, unspecified; Z79.811 Long term (current) use of aromatase inhibitors; Z79.899 Other long term (current) drug therapy; Z88.5 Allergy status to narcotic agent ==

== ENCOUNTER → 2024-05-03 | Outpatient (CLI) | payer BC ==
[2024-05-03 13:53] LABS: BASO # 0.1 10^3/uL (0.0-0.2); BASO % 0.7 % (0.0-1.0); EOS # 0.2 10^3/uL (0.0-0.5); EOS % 1.6 % (0.0-3.0); HEMATOCRIT 38.8 % (36.0-47.0); LYMPH # 3.8 10^3/uL (1.5-5.0); LYMPH % 28.1 % (24.0-44.0); MEAN CORPUSCULAR HEMOGLOBIN 30.3 pg (27.0-33.0); MEAN CORPUSCULAR HGB CONC 33.5 g/dl (32.0-36.5); MEAN CORPUSCULAR VOLUME 90.4 fl (80.0-96.0); MONO # 0.6 10^3/uL (0.0-0.8); MONO % 4.6 % (2.0-8.0); NEUTROPHILS # 8.7 10^3/uL (1.5-8.5); NEUTROPHILS % 64.6 % (36.0-66.0); PLATELET COUNT, AUTOMATED 296 10^3/uL (150-450); RED BLOOD COUNT 4.29 10^6/uL (4.00-5.40); WHITE BLOOD COUNT 13.5 10^3/uL (4.0-10.0)
[2024-05-03 14:11] LABS: ALKALINE PHOSPHATASE 55 U/L (46-116); ALT/SGPT 16 U/L (7.0-40); AST/SGOT < 8 U/L (<34); BILIRUBIN,TOTAL 0.5 MG/DL (0.3-1.2); BLOOD UREA NITROGEN 13 MG/DL (9-23); CALCIUM LEVEL 10.5 MG/DL (8.5-10.1); CARBON DIOXIDE LEVEL 31 MMOL/L (20-31); CHLORIDE LEVEL 108 MMOL/L (98-107); CHOLESTEROL LEVEL 197 MG/DL (<200); CHOLESTEROL RISK RATIO 3.29 (<5); CREATININE FOR GFR 0.58 MG/DL (0.55-1.30); GLOMERULAR FILTRATION RATE > 60.0 (>58); GLUCOSE, FASTING 91 MG/DL (60-100); HDL CHOLESTEROL 59.8 MG/DL (>40); LDL CHOLESTEROL 118.8 MG/DL (<100); NON-HDL-C 137.2 MG/DL; POTASSIUM SERUM 4.6 MMOL/L (3.5-5.1); SODIUM LEVEL 141 MMOL/L (136-145); TOTAL PROTEIN 6.9 G/DL (5.7-8.2); TRIGLYCERIDES LEVEL 92 MG/DL (<150)
== END ==
LOC: M PLALAB 10:41
PROVIDERS: ATTEND Physician Assistant Medical
DX: K21.9 Gastro-esophageal reflux disease without esophagitis (principal); C56.1 Malignant neoplasm of right ovary; R18.0 Malignant ascites; Z13.220 Encounter for screening for lipoid disorders

== ENCOUNTER → 2024-07-20 | Outpatient (CLI) | payer BC | LOC: M WHC 15:03 | PROVIDERS: ATTEND Physician Assistant Medical | DX: Z12.31 Encounter for screening mammogram for malignant neoplasm of breast (principal); C56.9 Malignant neoplasm of unspecified ovary; M81.0 Age-related osteoporosis without current pathological fracture; M85.89 Other specified disorders of bone density and structure, multiple sites ==

== ENCOUNTER → 2024-07-20 | Outpatient (CLI) | payer BC ==
[2024-07-20 17:50] LABS: BASO # 0.1 10^3/uL (0.0-0.2); BASO % 0.8 % (0.0-1.0); EOS # 0.3 10^3/uL (0.0-0.5); EOS % 2.4 % (0.0-3.0); HEMATOCRIT 38.8 % (36.0-47.0); HEMOGLOBIN 13.2 g/dl (12.0-15.5); LYMPH # 4.6 10^3/uL (1.5-5.0); LYMPH % 44.7 % (24.0-44.0); MEAN CORPUSCULAR HEMOGLOBIN 30.6 pg (27.0-33.0); MONO # 0.6 10^3/uL (0.0-0.8); NEUTROPHILS # 4.7 10^3/uL (1.5-8.5); NEUTROPHILS % 45.9 % (36.0-66.0); PLATELET COUNT, AUTOMATED 316 10^3/uL (150-450); RED BLOOD COUNT 4.31 10^6/uL (4.00-5.40); WHITE BLOOD COUNT 10.2 10^3/uL (4.0-10.0)
== END ==
LOC: M PLALAB 15:39
PROVIDERS: ATTEND Physician Assistant Medical
DX: D72.829 Elevated white blood cell count, unspecified (principal)

== ENCOUNTER → 2024-11-20 | Outpatient (CLI) | payer BC ==
[~2024-11-20] VITALS: Ht 160 cm; Wt 55.0 kg
[2024-11-20 10:23] VITALS: BP 122/81; O2SAT 98
== END ==
LOC: M PAL 10:10
PROVIDERS: ATTEND Physician Assistant
DX: Z51.5 Encounter for palliative care (principal); C56.9 Malignant neoplasm of unspecified ovary; Z79.811 Long term (current) use of aromatase inhibitors; G47.00 Insomnia, unspecified; Z88.5 Allergy status to narcotic agent

== ENCOUNTER 2025-06-26 15:46 | Emergency (ER) | payer BC ==
[~2025-06-26] VITALS: Ht 160 cm; Wt 53.4 kg
[2025-06-26 16:17] LABS: BASO # 0.1 10^3/uL (0.0-0.2); BASO % 0.9 % (0.0-1.0); EOS # 0.2 10^3/uL (0.0-0.5); EOS % 2.2 % (0.0-3.0); LYMPH # 4.3 10^3/uL (1.5-5.0); LYMPH % 43.5 % (24.0-44.0); MONO # 0.5 10^3/uL (0.0-0.8); MONO % 5.3 % (2.0-8.0); NEUTROPHILS # 4.7 10^3/uL (1.5-8.5); NEUTROPHILS % 48.0 % (36.0-66.0); PLATELET COUNT, AUTOMATED 343 10^3/uL (150-450)
[2025-06-26] MEDS ORDERED: HOME MED LIST COMPLETE! XX SCH (16:40)
[2025-06-26 16:44] LABS: CALCIUM LEVEL 9.5 MG/DL (8.5-10.1); CARBON DIOXIDE LEVEL 31.0 MMOL/L (20-31); CHLORIDE LEVEL 103.0 MMOL/L (98-107); CREATININE FOR GFR 1.21 MG/DL (0.55-1.30); GLOMERULAR FILTRATION RATE 56.0 (>58); POTASSIUM SERUM 4.9 MMOL/L (3.5-5.1); SODIUM LEVEL 141.0 MMOL/L (136-145)
[2025-06-26 18:21] LABS: MAGNESIUM LEVEL 1.8 MG/DL (1.8-2.4)
[2025-06-26 18:25] LABS: FREE T4 1.39 NG/DL (0.89-1.76)
[2025-06-26] MEDS: LORazepam 0.5 MG TAB PO ONE (19:38)
[2025-06-26] MEDS ORDERED: HOLTER MONITOR XX (20:01)
[2025-06-26 20:15] VITALS: BP 121/76; O2SAT 97
[2025-06-26 20:20] VITALS: TEMP 97.8
== END 2025-06-26 20:27 | disposition home or self-care (01) ==
LOC: M ED 15:46
DX: R00.2 Palpitations (principal); K21.9 Gastro-esophageal reflux disease without esophagitis; F17.210 Nicotine dependence, cigarettes, uncomplicated; F12.10 Cannabis abuse, uncomplicated; Z88.5 Allergy status to narcotic agent; Z79.899 Other long term (current) drug therapy

== ENCOUNTER → 2025-06-27 | Outpatient (CLI) | payer BC ==
[~2025-06-27] MED LIST changes: +HOLTER MONITOR XX
== END ==
LOC: M EKG 11:15
PROVIDERS: ATTEND Registered Nurse
DX: R00.2 Palpitations (principal)